=== PATIENT | male | born 1965 | race Caucasian/White ===

== ENCOUNTER → 2020-10-22 | Day surgery (SDC) | payer OTHER ==
[~2020-10-22] MED LIST: Ketamine 200 MG/20 ML MDV ONE; Lactated Ringers 1,000 ML IV SCH; Propofol 200 MG/20 ML SDV ONE; fentaNYL 100 MCG/2 ML SDV ONE
--- NOTE | 2020-10-22 13:02 | OR ---
DATE OF OPERATION: 10/22/2020 PREOPERATIVE DIAGNOSIS: CHRONIC DIARRHEA AND HISTORY OF CLOSTRIDIUM DIFFICILE. POSTOPERATIVE DIAGNOSIS: CHRONIC DIARRHEA AND HISTORY OF CLOSTRIDIUM DIFFICILE. SURGEON: Miguelangel Foster MD PROCEDURE: TOTAL COLONOSCOPY WITH MULTIPLE RANDOM BIOPSIES (CECUM, PROXIMAL TRANSVERSE COLON, DISTAL TRANSVERSE COLON, SIGMOID, AND RECTUM). ANESTHESIA: MAC. SPECIMEN: As above. FINDINGS: Normal-appearing colonoscopy. RECOMMENDATIONS: Pathology pending. INDICATIONS: This 55-year-old male has had a prior history of C. difficile and has chronic diarrhea requiring 8 Imodium tablets per day to control this. DESCRIPTION OF PROCEDURE: After adequate preparation, a colonoscope was inserted into the rectum. This was easily passed all the way to the cecum. Confirmation of the cecum was made by visualization of the ileocecal valve and light shining through the right lower quadrant and also by palpation. The bowel prep was very good. On withdrawal of the scope, mucosa appeared to be normal, and I did not find any evidence of polyps or chronic colitis. On withdrawal of the scope, there had been multiple biopsies, two in each site, one at the cecum, transverse colon x2, sigmoid colon, and the rectum. Air was suctioned from the colon, and the scope removed. BPB/MODL /[id number]
== END ==
LOC: CC.SDS 11:09
PROVIDERS: ATTEND Surgery
DX: K52.9 Noninfective gastroenteritis and colitis, unspecified (principal); E78.5 Hyperlipidemia, unspecified; R19.09 Other intra-abdominal and pelvic swelling, mass and lump; Z86.19 Personal history of other infectious and parasitic diseases
CPT/HCPCS: 00812; J2704; J3010; J7120